=== PATIENT | female | born 1980 | race Caucasian/White ===

== ENCOUNTER → 2020-06-09 | Day surgery (SDC) | payer MEDICAID, OTHER ==
[~2020-06-09] MED LIST: Bupivacaine 0.5% 50 ML MDV ONE; Dexamethasone 4 MG/ML SDV ONE; Dextrose 5%-Lactated Ringers 1,000 ML IV SCH; Glycopyrrolate 0.2 MG/ML 5 ML MDV ONE; Ketamine 50 MG in Sodium Chloride 0.9% 49.5 ML IV SCH; Ketamine 500 MG/5 ML MDV IV SCH; Lactated Ringers 1,000 ML ONE; Levofloxacin 500 MG/20 ML SDV ONE; Lidocaine 1% with EPINEPHrine 1:100,000 50 ML MDV ONE; Magnesium Sulfate 3.6 GM in Sodium Chloride 0.9% 100 ML IV SCH; Magnesium Sulfate 5.7 GM in Sodium Chloride 0.9% 250 ML IV ONE; Neostigmine Methylsulfate 1 MG/ML 5 ML Syringe ONE; Ondansetron 4 MG/2 ML SDV ONE; Propofol 200 MG/20 ML SDV ONE; Rocuronium 50 MG/5 ML Vial ONE; Succinylcholine 200 MG/10 ML MDV ONE; cefOXitin 2 GM Vial ONE; cefOXitin 2 GM in Sodium Chloride 0.9% 50 ML IV ONE; fentaNYL 250 MCG/5 ML SDV ONE
[2020-06-09] MEDS: Acetaminophen 500 MG Tab PO ONE (10:41)
[2020-06-09] MEDS: Scopolamine 1.5 MG Transdermal Patch TRDERM SCH (10:41)
[2020-06-09] MEDS: Celecoxib 200 MG Cap PO ONE (10:41)
[2020-06-09 10:45] LABS: HEMOGLOBIN A1C 5.6 % (4.5-6.2)
[2020-06-09] MEDS: Levofloxacin/Dextrose 5%-Water 500 MG in Premix Bag 1 BAG IV ONE (11:38)
--- NOTE | 2020-06-12 15:11 | PCM.EKG ---
#1 Interpretation EKG Date: 06/09/20 Time: 10:36 Rhythm: NSR Rate (Beats/Min): 78 [place]: Normal P-Wave: Present QRS: Normal ST-T: Normal QT: Normal Comparison: NA - No Prior EKG EKG Interpretation Comments: Ventricular trigeminy is noted Low voltage in the extremity leads is noted
== END ==
LOC: JP.SDS 09:58
PROVIDERS: ATTEND Surgery
DX: E66.01 Morbid (severe) obesity due to excess calories (principal); Z68.42 Body mass index [BMI] 45.0-49.9, adult; Z88.0 Allergy status to penicillin; Z87.891 Personal history of nicotine dependence; M54.5 Low back pain; G89.29 Other chronic pain; M25.50 Pain in unspecified joint; Z86.32 Personal history of gestational diabetes; Z53.8 Procedure and treatment not carried out for other reasons
CPT/HCPCS: 36415; 82947; 83036; 84484; 86850; 86900; 86901; 93005; A9270; J1956; J3010; J7120; J0171; J0330; J0694; J1100; J2405; J2704; J2710; J2795; J3490

== ENCOUNTER 2020-09-21 05:49 | Inpatient (IN) | payer MEDICAID ==
[~2020-09-21 05:49] MED LIST changes: +Acetaminophen 500 MG Tab PO ONE; -Bupivacaine 0.5% 50 ML MDV ONE; +Celecoxib 200 MG Cap PO ONE; -Dexamethasone 4 MG/ML SDV ONE; -Dextrose 5%-Lactated Ringers 1,000 ML IV SCH; -Glycopyrrolate 0.2 MG/ML 5 ML MDV ONE; -Ketamine 50 MG in Sodium Chloride 0.9% 49.5 ML IV SCH; -Ketamine 500 MG/5 ML MDV IV SCH; -Lactated Ringers 1,000 ML ONE; -Levofloxacin 500 MG/20 ML SDV ONE; -Lidocaine 1% with EPINEPHrine 1:100,000 50 ML MDV ONE; -Magnesium Sulfate 3.6 GM in Sodium Chloride 0.9% 100 ML IV SCH; -Magnesium Sulfate 5.7 GM in Sodium Chloride 0.9% 250 ML IV ONE; -Neostigmine Methylsulfate 1 MG/ML 5 ML Syringe ONE; -Ondansetron 4 MG/2 ML SDV ONE; -Propofol 200 MG/20 ML SDV ONE; -Rocuronium 50 MG/5 ML Vial ONE; +Scopolamine 1.5 MG Transdermal Patch TOP ONE; -Succinylcholine 200 MG/10 ML MDV ONE; -cefOXitin 2 GM Vial ONE; -cefOXitin 2 GM in Sodium Chloride 0.9% 50 ML IV ONE; -fentaNYL 250 MCG/5 ML SDV ONE
[2020-09-21] MEDS ORDERED: Dextrose 5%-Lactated Ringers 1,000 ML IV SCH (06:30)
[2020-09-21] MEDS ORDERED: cefOXitin 1 GM Vial ONE (06:46)
[2020-09-21] MEDS ORDERED: cefOXitin 2 GM Vial ONE (06:49)
[2020-09-21] MEDS ORDERED: Propofol 200 MG/20 ML SDV ONE (07:07)
[2020-09-21] MEDS ORDERED: Succinylcholine 200 MG/10 ML MDV ONE (07:07)
[2020-09-21] MEDS ORDERED: Dexamethasone 4 MG/ML SDV ONE (07:07)
[2020-09-21] MEDS ORDERED: Glycopyrrolate 0.2 MG/ML 5 ML MDV ONE (07:07)
[2020-09-21] MEDS ORDERED: Rocuronium 50 MG/5 ML Vial ONE (07:07)
[2020-09-21] MEDS ORDERED: fentaNYL 250 MCG/5 ML SDV ONE (07:07)
[2020-09-21] MEDS ORDERED: Ondansetron 4 MG/2 ML SDV ONE (07:07)
[2020-09-21] MEDS ORDERED: Neostigmine Methylsulfate 1 MG/ML 5 ML Syringe ONE (07:07)
[2020-09-21] MEDS ORDERED: Lactated Ringers 1,000 ML ONE (07:11)
[2020-09-21] MEDS ORDERED: cefOXitin 2 GM in Sodium Chloride 0.9% 50 ML IV ONE (07:15)
[2020-09-21] MEDS ORDERED: Magnesium Sulfate 3.5 GM in Sodium Chloride 0.9% 100 ML IV SCH (07:30)
[2020-09-21] MEDS ORDERED: Ketamine 500 MG/5 ML MDV IV SCH (07:30)
[2020-09-21] MEDS ORDERED: Ketamine 50 MG in Sodium Chloride 0.9% 49.5 ML IV SCH (07:30)
[2020-09-21] MEDS ORDERED: Magnesium Sulfate 3.7 GM in Sodium Chloride 0.9% 250 ML IV ONE (07:30)
[2020-09-21] MEDS ORDERED: Lidocaine 2% 100 MG/5 ML Syringe ONE (08:31)
[2020-09-21] MEDS ORDERED: fentaNYL 100 MCG/2 ML SDV ONE (09:01)
[2020-09-21] MEDS ORDERED: hydrOXYzine HCL 100 MG/2 ML SDV IM ONE (09:42)
[2020-09-21] MEDS ORDERED: traMADol 50 MG Tab PO PRN (11:00)
[2020-09-21] MEDS: HYDROmorphone 1 MG/ML Syringe IV PRN (11:08)
[2020-09-21] MEDS ORDERED: Cyclobenzaprine 10 MG Tab PO PRN (11:11)
[2020-09-21] MEDS ORDERED: Calcium Gluconate 10% 1 GM/10 ML SDV IVPUSH PRN (12:00)
[2020-09-21] MEDS ORDERED: Labetalol 20 MG/4 ML Syringe IVPUSH PRN (12:00)
[2020-09-21] MEDS ORDERED: diphenhydrAMINE 50 MG/ML SDV IVPUSH PRN (12:00)
[2020-09-21] MEDS ORDERED: Acetaminophen 500 MG Tab PO PRN (12:00)
[2020-09-21] MEDS: Ondansetron 4 MG/2 ML SDV IVPUSH PRN ×3 (12:20→22:28)
--- NOTE | 2020-09-21 13:25 | PCM.EKG ---
#1 Interpretation EKG Date: 09/21/20 Time: 07:05 Rhythm: NSR Rate (Beats/Min): 73 [place]: Normal P-Wave: Present QRS: Normal ST-T: Normal QT: Normal NV/PQ Interval: normal Comparison: NA - No Prior EKG EKG Interpretation Comments: late R-S transition between V5-V6
[2020-09-21] MEDS: Metoclopramide 10 MG/2 ML SDV IVPUSH PRN ×2 (14:06→20:10)
[2020-09-21] MEDS: Dextrose 5%-Lactated Ringers 1,000 ML IV SCH (14:11)
[2020-09-21] MEDS: hydrOXYzine HCL 100 MG/2 ML SDV IM PRN (14:25)
[2020-09-21] MEDS: cefOXitin 2 GM in Sodium Chloride 0.9% 50 ML IV SCH ×2 (14:32→19:47)
[2020-09-21] MEDS: Pantoprazole 40 MG Vial IVPUSH SCH (15:30)
[2020-09-21] MEDS: HYDROmorphone 0.5 MG/0.5 ML Syringe IVPUSH PRN (15:35)
[2020-09-21] MEDS ORDERED: MVI, Adult with Vitamin K 10 ML, Thiamine 200 MG, Zinc/Copper/Manganese/Selenium 1 ML i... IV SCH ×4 (16:00)
[2020-09-21] MEDS: Acetaminophen 500 MG Tab PO SCH (17:55)
[2020-09-21] MEDS: Heparin Sodium 5,000 Units/ML Vial SUBCUT SCH (17:57)
[2020-09-22] MEDS: oxyCODONE 5 MG Tab PO PRN (00:52)
[2020-09-22] MEDS: Acetaminophen 500 MG Tab PO SCH ×3 (00:52→17:19)
[2020-09-22] MEDS: Dextrose 5%-Lactated Ringers 1,000 ML IV SCH ×2 (01:16→07:28)
[2020-09-22] MEDS: cefOXitin 2 GM in Sodium Chloride 0.9% 50 ML IV SCH ×2 (01:20→07:29)
[2020-09-22] MEDS ORDERED: Iopamidol 612 MG/ML 50 ML SDV PO ONE (03:38)
[2020-09-22] MEDS: Heparin Sodium 5,000 Units/ML Vial SUBCUT SCH ×2 (05:31→18:58)
[2020-09-22] MEDS: Ondansetron 4 MG/2 ML SDV IVPUSH PRN ×4 (07:03→21:10)
[2020-09-22] MEDS: hydrOXYzine HCL 100 MG/2 ML SDV IM PRN ×2 (07:05→12:38)
[2020-09-22] MEDS: HYDROmorphone 1 MG/ML Syringe IV PRN (07:44)
[2020-09-22] MEDS: Metoclopramide 10 MG/2 ML SDV IVPUSH PRN ×3 (07:47→19:46)
[2020-09-22] MEDS: SCOPOLAMINE PATCH CHECK TOP SCH (10:11)
--- NOTE | 2020-09-22 10:16 | CR ---
UGI Limited HISTORY: Postbariatric surgery FINDINGS: Patient swallowed water-soluble contrast. Upright views of the abdomen show no evidence of extravasation. There is distention of the proximal jejunum. This may be postop ileus IMPRESSION: Status post bariatric surgery No extravasation Proximal small bowel distention likely related to postop ileus. Short-term follow-up abdominal series recommended
[2020-09-22] MEDS: Celecoxib 200 MG Cap PO SCH ×2 (10:28→21:04)
[2020-09-22] MEDS: HYDROmorphone 0.5 MG/0.5 ML Syringe IVPUSH PRN ×3 (10:29→21:10)
[2020-09-22] MEDS ORDERED: MVI, Adult with Vitamin K 10 ML, Thiamine 200 MG, Zinc/Copper/Manganese/Selenium 1 ML i... IV SCH ×4 (16:00)
[2020-09-22] MEDS: Pantoprazole 40 MG Vial IVPUSH SCH (17:16)
[2020-09-23] MEDS: Ondansetron 4 MG/2 ML SDV IVPUSH PRN ×2 (01:26→08:33)
[2020-09-23] MEDS: HYDROmorphone 0.5 MG/0.5 ML Syringe IVPUSH PRN ×2 (01:26→06:22)
[2020-09-23] MEDS: Dextrose 5%-Lactated Ringers 1,000 ML IV SCH ×3 (01:27→23:58)
[2020-09-23] MEDS: Acetaminophen 500 MG Tab PO SCH (01:37)
--- NOTE | 2020-09-23 04:48 | CRLCR ---
For Patients: As a result of the Cures Act, medical imaging exams and procedure reports are released immediately into your electronic medical record. You may view this report before your referring provider. If you have questions, please contact your health care provider. Indication: Nausea and emesis Technique: Abdomen 2 view. Comparison: 09/22/2020 Findings: Postop changes left upper quadrant. Similar appearance jejunum with residual contrast similar to prior upper GI study. No contrast in the colon. Impression: Similar appearance of jejunal loops in the left upper quadrant with residual water-soluble contrast present. No contrast in the colon. Findings likely representing postoperative ileus. Dictated by Elfego Cabrera MD @ 09/23/2020 4:46:[address] Elfego Cabrera @ Sep 23 2020 4:46AM
[2020-09-23] MEDS: Heparin Sodium 5,000 Units/ML Vial SUBCUT SCH ×2 (06:22→18:04)
[2020-09-23] MEDS: Metoclopramide 10 MG/2 ML SDV IVPUSH PRN ×2 (06:22→14:40)
[2020-09-23] MEDS: methylPREDNISolone Sodium Succinate 125 MG/2 ML SDV IV SCH ×3 (08:22→23:57)
[2020-09-23] MEDS: Acetaminophen Soln 650 MG/20.3 ML UD Cup PO SCH ×3 (08:26→23:58)
[2020-09-23] MEDS ORDERED: Cyanocobalamin (Vitamin B12) 1,000 MCG/ML SDV IM ONE (09:00)
[2020-09-23] MEDS: SCOPOLAMINE PATCH CHECK TOP SCH (09:19)
[2020-09-23] MEDS: Celecoxib 200 MG Cap PO SCH ×2 (09:20→21:34)
[2020-09-23] MEDS: oxyCODONE 5 MG Tab PO PRN (14:39)
[2020-09-23] MEDS: Pantoprazole 40 MG Vial IVPUSH SCH (16:24)
[2020-09-24] MEDS: Heparin Sodium 5,000 Units/ML Vial SUBCUT SCH (06:02)
--- NOTE | 2020-09-24 06:04 | CRLCR ---
For Patients: As a result of the Century Cures Act, medical imaging exams and procedure reports are released immediately into your electronic medical record. You may view this report before your referring provider. If you have questions, please contact your health care provider. Indication: Follow-up obstruction Technique: Abdomen 2 view. Comparison: 09/23/2020 Findings: Contrast in the colon. Surgical drain left upper quadrant. No pleural effusion. Postop changes left abdomen. Impression: Contrast in the colon. No SBO. Dictated by Elfego Cabrera MD @ 09/24/2020 6:02:[address] Elfego Cabrera @ Sep 24 2020 6:02AM
[2020-09-24] MEDS: methylPREDNISolone Sodium Succinate 125 MG/2 ML SDV IV SCH (08:55)
[2020-09-24] MEDS: Celecoxib 200 MG Cap PO SCH (08:56)
[2020-09-24] MEDS: Acetaminophen Soln 650 MG/20.3 ML UD Cup PO SCH (08:56)
[2020-09-24] MEDS ORDERED: Magnesium Hydroxide 400 MG/5 ML Susp 30 ML Cup PO PRN (09:15)
[2020-09-24] MEDS ORDERED: Scopolamine 1.5 MG Transdermal Patch TOP ONE (09:30)
--- NOTE | 2020-09-25 13:07 | PN ---
DATE OF SERVICE: 09/22/2020 The patient is postop day 1 from a laparoscopic Elnea-en-Y gastric bypass. She has been quite nauseated over the last 24 hours, but appears to be improving. Hopefully, this is related to anesthesia and pain medication. Her upper GI x-ray looked okay, other than the small bowel was somewhat distended. We are in the process of obtaining a followup x-ray to make sure things are passing through satisfactorily. Otherwise, we will back down the IV rate around midday to a maintenance rate and advance diet to a step-2 diet if she otherwise resolves her nausea as the day goes by here. Quintin Torres MD /[id number]
--- NOTE | 2020-09-25 13:44 | PN ---
DATE OF SERVICE: 09/23/2020 The patient continues to have some nausea overnight, although this seems to be resolved to some extent. Still getting small amounts of liquid. The amount of emesis overnight has decreased quite a bit. Her abdominal x-ray is somewhat difficult to read and there still appeared to be some dye within the distended loop of small bowel with the point of obstruction similar to yesterday. Some dye is getting more distally but quite slowly and probably some of this has been emesis. At any rate, I think we are most likely dealing with some submucosal hemorrhage at or near the jejunojejunostomy and we will try waiting on this at least 1 more day. We will add some Solu-Medrol to try to decrease the edema present and recheck an abdominal x-ray tomorrow, and CBC, CMP, mag, phos, and BNP will be ordered in the morning. If her clinical condition worsens, we will need to look in laparoscopically in the immediate term. Otherwise, we will reassess things tomorrow morning. Quintin Torres MD /[id number]
--- NOTE | 2020-09-25 15:12 | DISCH ---
FINAL DIAGNOSES: 1. Morbid obesity. 2. Marked hepatomegaly. 3. Paraesophageal diaphragmatic hernia. 4. Area of the stomach ischemic at the formation of gastric pouch. SECONDARY DIAGNOSES: 1. History of pain in weightbearing joints. 2. History of gestational diabetes. 3. History of reflux esophagitis. 4. Low back pain. OPERATIVE PROCEDURES: On the date of admission was diagnostic laparoscopy with: 1. Laparoscopic Elena-en-Y gastric bypass with long limb gastroenterostomy. 2. Raad-Cut needle liver biopsy. 3. Repair of paraesophageal diaphragmatic hernia. 4. Partial gastrectomy. SUMMARY: This is a 39-year-old female presenting with longstanding morbid obesity and increasingly significant comorbidities. After preoperative evaluation and discussion, she wished to proceed with a gastric bypass procedure. This was done on the date of admission with the above-noted additional procedures. Postoperatively, the patient's upper GI showed very slow transit through the midportion of the Elena limb. This did resolve yesterday had 1500 mL of liquids and essentially no nausea at this point. The patient will be discharged home on a step-2 diet with no solids. Follow up with Calli Dockery at [facility] on 10/02/2020. She will be Tylenol and Celebrex for pain. /[id number]
--- NOTE | 2020-10-04 07:32 | OR ---
DATE OF PROCEDURE: 09/21/2020 SURGEON: Quintin Torres MD PREOPERATIVE DIAGNOSIS: Morbid obesity. POSTOPERATIVE DIAGNOSES: 1. Morbid obesity. 2. Marked hepatomegaly. 3. Paraesophageal diaphragmatic hernia. 4. Portion of stomach ischemic, status post formation of gastric pouch. OPERATIVE PROCEDURES: Diagnostic laparoscopy with: 1. Laparoscopic Elena-en-Y gastric bypass with long limb gastroenterostomy (31290). 2. Raad-Cut needle liver biopsy (57386). 3. Repair of paraesophageal diaphragmatic hernia (87939). 4. Partial gastrectomy (72349). ANESTHESIA: General. HEMMING AND TACKING MACHINE OPERATOR: Calli Dockery PA-C INDICATIONS FOR PROCEDURE: This is a 39-year-old presenting with longstanding morbid obesity and increasingly significant comorbidities. After preoperative evaluation and discussion, she wished to proceed with a gastric bypass procedure. Potential risks including bleeding, infection, leaks from various GI tract closures, and problems with bowel obstruction over time as well as possibility of cardiopulmonary, septic, or hemorrhagic complications leading to were all discussed, and the patient wishes to proceed. DETAILS OF PROCEDURE: The patient was taken to the operating room after general endotracheal anesthesia was induced. She was placed in a lithotomy position and the abdomen prepped and draped. 15 cm inferior and 5 cm left of the xiphoid process, a transverse incision was made, and the peritoneal cavity entered under direct vision with an Optiview trocar, inflated to 15 mmHg pressure with CO2. Laparoscope was reinserted. No underlying trocar insertion site injuries were seen. Following this, bilateral transverse abdominis plane blocks were placed, and 5 additional trocars were placed across the upper and mid abdomen. The patient was noted to have markedly enlarged liver, which was fatty infiltrated. Raad-Cut needle biopsies were obtained from left lobe of the liver. Minimal bleeding from biopsy sites was controlled with electrocautery. The omentum was then divided in the midline up to the level of the transverse colon. This allowed identification of small bowel to ligament of Treitz. Small bowel was traced out 150 cm distal to that point where it was divided transversely with CANDIDA stapler. The small bowel was then traced out additional 150 cm where the [id number] enteroenterostomy was accomplished with internal firing of the Endo-CANDIDA 60 mm stapler. Common opening was then closed transversely with the same stapler. The angles were anastomosed. Mesenteric defect approximated with some 0 Ethibond stitch along with 4 mL of fibrin sealant. The Elena limb was brought up to the level of the gastroesophageal junction without tension. The liver was then retracted anteriorly. The patient was noted to have moderate-sized paraesophageal diaphragmatic hernia with prolapse of some perigastric fat and gastric fundus into the hernia along side of the esophagus. This was reduced and peritoneum overlying incised and reflected downward. The hernia was then repaired anteriorly with 0 Ethibond sutures reinforced with PTFE pledgets. The gastrointestinal balloon catheter was inflated to 15 mL and pulled up snugly against the EG junction. The gastric wall over the apex of balloon was marked with electrocautery. Balloon catheter was deflated and pulled up from the esophagus. The lesser omental tissue adjacent to the gastric cardia was incised allowing dissection behind the stomach at that level. Pouch formation was initiated with transverse firing of the CANDIDA stapler at the level of the cauterized abel on the gastric cardia and completed with some additional CANDIDA иван up to and through the angle of His. Upon completion of the pouch, the patient was noted to have an area of ischemia involving the bypassed portion of the stomach. This was excised with additional partial gastrectomy to allow avoidance of problems such as leaks from an ischemic area of the bypassed stomach. Specimen was then delivered from the field. The anvil of a 25 mm EEA stapler was then attached to a Jerome sump-type tube, brought down through the mouth, and taken out through a small opening in the gastric pouch allowing the anvil likewise to be pulled down to within the gastric pouch. Elena limb was then opened, and the main body of the EEA stapler passed several centimeters into the lumen of small bowel, brought up the anvil, and united with it, thus creating the gastrojejunostomy. Upon removal of the stapler, double donuts of mucosa were noted within it. Small bowel was closed off with a vascular staple line. Gastrojejunostomy was reinforced with some 3-0 Vicryl seromuscular stitch along with 4 mL of fibrin sealant. Leak test was accomplished with injection of 120 mL of air in the gastric pouch while it was submerged with cefoxitin- containing saline solution. No leaks were identified. A single Hermilo-Pickett drain was taken out through the left lateral trocar site, placed adjacent to the gastrojejunostomy, and from there up into the splenic fossa. Trocars were removed. Peritoneal cavity deflated. Incisions were closed with some 4-0 Vicryl skin stitch and the patient was taken to the recovery room in satisfactory condition. Physician Calender Operator Helper, Calli Dockery, played an essential role in assisting in this case, helping to position the patient, retract structures as needed, as well as suturing and cutting sutures when indicated. Her presence improved patient safety and decreased the operative time. Quintin Torres MD /[id number]
== END 2020-09-24 11:15 | disposition home or self-care (01) | DRG 621 ==
LOC: JP.MS 05:49 → JP.SDS 05:49 → EDSTATUS 07:30 → JP.MS 09:50
PROVIDERS: ADMIT Surgery; ATTEND Surgery
PROC: 0D164ZA Bypass Stomach to Jejunum, Percutaneous Endoscopic Approach (ICD-10-PCS; principal; 2020-09-21)
PROC: 0FB24ZX Excision of Left Lobe Liver, Percutaneous Endoscopic Approach, Diagnostic (ICD-10-PCS; 2020-09-21)
PROC: 0BQT4ZZ Repair Diaphragm, Percutaneous Endoscopic Approach (ICD-10-PCS; 2020-09-21)
PROC: 0DB64ZZ Excision of Stomach, Percutaneous Endoscopic Approach (ICD-10-PCS; 2020-09-21)
DX: E66.01 Morbid (severe) obesity due to excess calories (principal); K31.89 Other diseases of stomach and duodenum; R16.0 Hepatomegaly, not elsewhere classified; K44.9 Diaphragmatic hernia without obstruction or gangrene; I99.8 Other disorder of circulatory system; M54.5 Low back pain; Z87.891 Personal history of nicotine dependence; Z79.899 Other long term (current) drug therapy; Z88.0 Allergy status to penicillin
CPT/HCPCS: 36415; 74019; 74240; 74240-26; 80053; 81025; 82947; 83735; 83880; 84100; 85027; 86850; 86900; 86901; 88307; 88313; 93005; 94762; A9270-GY; C9113; J0171; J0330; J0694; J1100; J1170; J1644; J2405; J2704; J2710; J2765; J2795; J2930; J3010; J3410; J3411; J3420; J3475; J3490; J7030; J7050; J7120; J7121; Q9967

== ENCOUNTER 2020-11-28 09:09 | Inpatient (IN) | payer MEDICAID ==
[~2020-11-28 09:09] MED LIST changes: +Bupivacaine 0.5%/EPINEPHrine 1:200,000 50 ML MDV ONE; +Meropenem 500 MG SDV ONE; -Scopolamine 1.5 MG Transdermal Patch TOP ONE
[2020-11-28] MEDS ORDERED: ceFAZolin 2 GM in Premix Bag 1 BAG IV ONE (09:30)
[2020-11-28] MEDS ORDERED: Dextrose 5%-Lactated Ringers 1,000 ML IV SCH ×2 (09:30→16:00)
[2020-11-28] MEDS ORDERED: ceFAZolin 2 GM in Sodium Chloride 0.9% 50 ML IV ONE (09:30)
[2020-11-28] MEDS ORDERED: Ketamine 500 MG/5 ML MDV IV SCH (11:00)
[2020-11-28] MEDS ORDERED: Ketamine 15 MG in Sodium Chloride 0.9% 19.85 ML IV SCH (11:00)
[2020-11-28] MEDS ORDERED: Glycopyrrolate 0.2 MG/ML 5 ML MDV ONE (11:07)
[2020-11-28] MEDS ORDERED: Rocuronium 50 MG/5 ML Vial ONE (11:07)
[2020-11-28] MEDS ORDERED: Ondansetron 4 MG/2 ML SDV ONE (11:07)
[2020-11-28] MEDS ORDERED: Propofol 200 MG/20 ML SDV ONE (11:07)
[2020-11-28] MEDS ORDERED: Succinylcholine 200 MG/10 ML MDV ONE (11:07)
[2020-11-28] MEDS ORDERED: Neostigmine Methylsulfate 1 MG/ML 5 ML Syringe ONE (11:07)
[2020-11-28] MEDS ORDERED: fentaNYL 250 MCG/5 ML SDV ONE (11:07)
[2020-11-28] MEDS ORDERED: Dexamethasone 4 MG/ML SDV ONE (11:07)
[2020-11-28] MEDS ORDERED: Lactated Ringers 1,000 ML ONE (14:00)
[2020-11-28] MEDS ORDERED: Sugammadex Sodium 200 MG/2 ML VIAL ONE (14:36)
[2020-11-28] MEDS ORDERED: hydrOXYzine HCL 100 MG/2 ML SDV IM ONE (14:51)
[2020-11-28] MEDS ORDERED: fentaNYL 100 MCG/2 ML SDV IVPUSH ONE (14:52)
[2020-11-28] MEDS ORDERED: Cyclobenzaprine 10 MG Tab PO PRN (16:00)
[2020-11-28] MEDS ORDERED: Labetalol 20 MG/4 ML Syringe IVPUSH PRN (16:00)
[2020-11-28] MEDS ORDERED: hydrOXYzine HCL 100 MG/2 ML SDV IM PRN (16:00)
[2020-11-28] MEDS ORDERED: Pantoprazole 40 MG Vial IVPUSH SCH (16:00)
[2020-11-28] MEDS ORDERED: Acetaminophen 500 MG Tab PO PRN (16:00)
[2020-11-28] MEDS ORDERED: diphenhydrAMINE 50 MG/ML SDV IVPUSH PRN (16:00)
[2020-11-28] MEDS ORDERED: MVI, Adult with Vitamin K 10 ML, Thiamine 200 MG, Zinc/Copper/Manganese/Selenium 1 ML i... IV SCH ×4 (16:00)
[2020-11-28] MEDS ORDERED: Ondansetron 4 MG/2 ML SDV IVPUSH PRN (16:00)
[2020-11-28] MEDS ORDERED: Metoclopramide 10 MG/2 ML SDV IVPUSH PRN (16:00)
[2020-11-28] MEDS ORDERED: HYDROmorphone 1 MG/ML Syringe IV PRN (16:00)
[2020-11-28] MEDS ORDERED: HYDROmorphone/Normal Saline 15 MG/30 ML PCA IV PRN (16:11)
[2020-11-28] MEDS ORDERED: Naloxone 0.4 MG/ML SDV IV PRN (17:00)
[2020-11-28] MEDS: cefOXitin 2 GM in Sodium Chloride 0.9% 50 ML IV SCH ×2 (17:31→23:29)
[2020-11-28] MEDS: Acetaminophen 500 MG Tab PO SCH (18:38)
[2020-11-28] MEDS: Heparin Sodium 5,000 Units/ML Vial SUBCUT SCH (21:23)
[2020-11-29] MEDS: Acetaminophen 500 MG Tab PO SCH ×3 (03:12→18:18)
[2020-11-29] MEDS ORDERED: Iopamidol 612 MG/ML 50 ML SDV PO STA (03:25)
[2020-11-29] MEDS: cefOXitin 2 GM in Sodium Chloride 0.9% 50 ML IV SCH ×3 (05:41→18:13)
[2020-11-29] MEDS ORDERED: Ondansetron 4 MG Tab.DIS PO PRN (07:48)
[2020-11-29] MEDS ORDERED: Dextrose 5%-Lactated Ringers 1,000 ML IV SCH (08:00)
[2020-11-29] MEDS ORDERED: Celecoxib 200 MG Cap PO SCH (09:00)
[2020-11-29] MEDS: HYDROmorphone 2 MG Tab PO PRN ×3 (09:10→18:18)
--- NOTE | 2020-11-29 09:13 | CR ---
UGI Limited HISTORY: Postbariatric surgery FINDINGS: Patient swallowed water-soluble contrast. Upright views of the abdomen show no evidence of extravasation or obstruction. IMPRESSION: Status post bariatric surgery/revision No extravasation or obstruction seen
[2020-11-29] MEDS: Heparin Sodium 5,000 Units/ML Vial SUBCUT SCH (09:14)
[2020-11-29] MEDS ORDERED: Pantoprazole 40 MG Tab.CR PO SCH (11:30)
[2020-11-29] MEDS ORDERED: MVI, Adult with Vitamin K 10 ML, Thiamine 200 MG, Zinc/Copper/Manganese/Selenium 1 ML i... IV SCH ×4 (16:00)
--- NOTE | 2020-11-30 07:12 | DISCH ---
ADMISSION DIAGNOSIS: Incarcerated incisional hernia. DISCHARGE DIAGNOSES: Diagnostic laparoscopy with lysis of adhesions. 1. Small-bowel resection. 2. Repair of incarcerated incisional hernia. POSTOPERATIVE DIAGNOSES: 1. Incarcerated incisional hernia with dense inflammatory adherence to incidental small bowel. 2. Date of procedure: 11/28/2020. Surgeon: Quintin Torres MD. HISTORY: Maeve Frank had an incisional hernia. After preoperative evaluation and discussion of possible risks and possible complications, she wished to proceed with surgical procedure. HOSPITAL COURSE: Maeve had her surgery on 11/28/2020. She was able to be discharged on postoperative day #1. PHYSICAL EXAMINATION: GENERAL: Maeve Frank is a pleasant 40-year-old female. VITAL SIGNS: Height is 5 feet 2 inches, weight is 221 pounds. TPR is 96, 62, 16, blood pressure is 95/54. HEENT: Negative. NECK: Supple. HEART: Regular rate and rhythm. LUNGS: Clear. ABDOMEN: Dressings dry and intact. Abdominal binder is on. EXTREMITIES: Without peripheral edema. DISPOSITION: Discharged to home. CONDITION: Stable and improving. FOLLOWUP: Appointment with Calli Dockery PA-C, on 12/08/2020 at 10 a.m. HOME MEDICATIONS: 1. Celebrex 200 mg p.o. b.i.d. #28. 2. Dilaudid 2 mg every 4 hours p.r.n. pain #12. DIET: Step 2 gastric bypass diet for 2 weeks. Drink 8 to 10 glasses of water a day. ACTIVITY: No lifting greater than 10 pounds for [address] for 1 week or within 8 hours of taking Dilaudid pain medication. May shower. Keep operative site clean and dry. Wear abdominal binder for 6 weeks and then as tolerated. Notify provider if any fever, increased pain, swelling, redness, drainage, nausea, vomiting, and use incentive spirometer 10 times every hour while awake. /[id number]
[2020-11-30] MEDS ORDERED: Cyanocobalamin (Vitamin B12) 1,000 MCG/ML SDV IM ONE (09:00)
--- NOTE | 2020-11-30 23:05 | OR ---
DATE OF PROCEDURE: 11/28/2020 SURGEON: Quintin Torres MD PREOPERATIVE DIAGNOSIS: Incarcerated incisional hernia. POSTOPERATIVE DIAGNOSIS: Incarcerated incisional hernia with dense inflammatory adherence to incarcerated small bowel. OPERATIVE PROCEDURE: Diagnostic laparoscopy with lysis of adhesions: 1. Small bowel resection (92153). 2. Repair of incarcerated incisional hernia (89738). ANESTHESIA: General. UNDERCAR SPECIALIST: Calli Dockery PA-C INDICATIONS FOR PROCEDURE: This is a 40-year-old female presenting with a hernia occurring in the left lateral subcostal trocar site. This on CT scan contained some small bowel within it. Plan is to proceed with diagnostic laparoscopy, laparotomy if necessary, and repair of the hernia. She is aware of possible need for bowel resection as well as potential complications such as bleeding, infection, recurrence of the hernia over time and wishes to proceed. PROCEDURE IN DETAIL: The patient was taken to the operating room, placed in a supine position. After general endotracheal anesthesia was induced, a Schultz catheter was inserted, and the abdomen prepped and draped. In the right lateral aspect of the abdomen, a transverse incision was made and peritoneal cavity entered under direct vision with an Optiview trocar. The peritoneal cavity was inflated to 15 mmHg pressure with CO2 and laparoscope reinserted. No underlying trocar site injuries were noted. Following this, 12 mm trocars were placed in the right lower quadrant and right upper quadrant. The small bowel was noted to be very densely adherent within the hernia. This was gradually dissected free out of the hernia sac. The bowel was not entered, but there was a significant area of deserosalization. Given this, decision was made to proceed with resection of that segment of bowel proximal and distal to the area of the deserosalization. This was then divided with CANDIDA иван as was the underlying mesentery. A [id number] enteroenterostomy was accomplished with internal firing of the Endo-CANDIDA 60 mm stapler. Common opening was then closed transversely with the same stapler, and the angles of anastomosis and mesenteric defect approximated with some 3-0 Vicryl stitch. The hernia itself was then repaired with interrupted 0 Vicryl sutures. These were placed in interrupted manner closing the hernia with a transverse orientation. The mesh was not used because of the open bowel occurring during the case. Following this, no additional abnormalities were noted. Bilateral transversus abdominis plane blocks were placed, the trocars were sequentially removed, and the peritoneal cavity deflated. Some fibrin sealant had been placed over the anastomosis as well, and the abdomen had been irrigated with meropenem-containing saline solution. The trocar sites were closed at the fascial level with 0 Vicryl stitch and skin with 4-0 Vicryl skin stitch. Dressing was applied, and the patient taken to the recovery room in satisfactory condition. Physician temporary administrative assistant, Calli Dockery, played an essential role in assisting in this case, helping to position the patient, retract structures as needed, as well as suturing and cutting sutures when indicated. Her presence improved patient's safety and increased the operative efficiency and safety. Quintin Torres MD /[id number]
== END 2020-11-29 18:40 | disposition home or self-care (01) | DRG 330 ==
LOC: JP.SDS 09:09 → EDSTATUS 09:15 → JP.MS 14:45
PROVIDERS: ADMIT Surgery; ATTEND Surgery
PROC: 0DB84ZZ Excision of Small Intestine, Percutaneous Endoscopic Approach (ICD-10-PCS; principal; 2020-11-28)
PROC: 0WQF4ZZ Repair Abdominal Wall, Percutaneous Endoscopic Approach (ICD-10-PCS; 2020-11-28)
DX: K43.0 Incisional hernia with obstruction, without gangrene (principal); Z68.41 Body mass index [BMI] 40.0-44.9, adult; Z88.0 Allergy status to penicillin; Z87.891 Personal history of nicotine dependence; E66.9 Obesity, unspecified; E78.5 Hyperlipidemia, unspecified
CPT/HCPCS: 74240; 74240-26; 94762; A9270-GY; C9113; J0171; J0330; J0690; J0694; J1100; J1170; J1644; J2020; J2185; J2405; J2704; J2710; J2795; J3010; J3410; J3411; J3490; J7120; J7121; Q9967